=== PATIENT | male | born 1955 | race Caucasian/White ===

== ENCOUNTER 2018-09-02 00:27 | Emergency (ER) | payer OTHER ==
[~2018-09-02] VITALS: Ht 182.9 cm; Wt 96.2 kg
[2018-09-02 00:32] VITALS: Ht 182.9 cm; Wt 96.2 kg
[2018-09-02 03:18] VITALS: BP 163/96
== END 2018-09-02 03:18 | disposition home or self-care (01) ==
LOC: ED 00:27
DX: M10.9 Gout, unspecified (principal); E78.00 Pure hypercholesterolemia, unspecified
CPT/HCPCS: J1885; J3010

== ENCOUNTER 2019-08-06 01:18 | Emergency (ER) | payer OTHER ==
[~2019-08-06] VITALS: Ht 182.9 cm; Wt 99.6 kg
[2019-08-06 01:27] VITALS: Ht 182.9 cm; Wt 99.6 kg
[2019-08-06 02:27] LABS: BASOPHIL % 0.7 % (0-2); PLATELET COUNT 189 x10^3mcL (130-400); RED CELL DISTRIBUTION WIDTH 14.3 % (11.5-14.5)
[2019-08-06 02:34] LABS: CALCIUM 8.8 mg/dL (8.5-10.1); CARBON DIOXIDE 29.4 mmol/L (21-32); CREATININE SERUM 1.3 mg/dL (0.7-1.3)
[2019-08-06 02:38] LABS: ALBUMIN 3.7 g/dL (3.4-5.0); BILIRUBIN TOTAL 0.63 mg/dL (0.20-1.00)
[2019-08-06 04:41] VITALS: BP 131/85
== END 2019-08-06 06:00 | disposition home or self-care (01) ==
LOC: ED 01:18
PROVIDERS: Emergency Medicine
DX: R20.2 Paresthesia of skin (principal); R53.83 Other fatigue; M79.605 Pain in left leg; M79.602 Pain in left arm; I10 Essential (primary) hypertension; E78.00 Pure hypercholesterolemia, unspecified; Z90.89 Acquired absence of other organs
CPT/HCPCS: J7030; Q0092; Q9967

== ENCOUNTER 2020-04-13 00:41 | Emergency (ER) | payer MEDICARE ==
[~2020-04-13] VITALS: Ht 182.9 cm; Wt 100.9 kg
[2020-04-13 00:59] VITALS: Ht 182.9 cm; Wt 100.9 kg
[2020-04-13 01:52] LABS: PLATELET COUNT 172 x10^3mcL (152-348)
[2020-04-13 01:53] LABS: RED CELL DISTRIBUTION WIDTH 15.4 % (12.1-16.2)
[2020-04-13 01:59] LABS: CALCIUM 9.2 mg/dL (8.5-10.1); CHLORIDE SERUM 104 mmol/L (98-107); CREATININE SERUM 1.2 mg/dL (0.7-1.3); GFR1 > 60 mL/min; GLUCOSE SERUM 129 mg/dL (74-106); POTASSIUM SERUM 3.7 mmol/L (3.5-5.1); SODIUM SERUM 140 mmol/L (136-145)
[2020-04-13] MEDS ORDERED: NORVASC5 MG PO ×2 (02:22→02:34)
[2020-04-13 02:48] VITALS: BP 114/77
[2020-04-13] MEDS ORDERED: TYL500 PO (12:08)
== END 2020-04-13 02:40 | disposition home or self-care (01) ==
LOC: ED 00:41
PROVIDERS: Emergency Medicine
DX: I10 Essential (primary) hypertension (principal); M79.602 Pain in left arm; E78.00 Pure hypercholesterolemia, unspecified; R20.2 Paresthesia of skin; H53.8 Other visual disturbances